=== PATIENT | female | born 1995 | race Caucasian/White ===

== ENCOUNTER 2018-07-02 09:28 | Emergency (ER) | payer OTHER ==
[~2018-07-02] VITALS: Ht 165.1 cm; Wt 65.8 kg
[2018-07-02] MEDS ORDERED: [UNRECOGNIZED DRUG - OTHER] (10:18)
[2018-07-02] MEDS ORDERED: bcp (10:25)
[2018-07-02] MEDS ORDERED: RABIES IMMUNE GLOBULIN 150 UNIT/ML 10 ML (HYPERRAB) IM ONE (10:30)
[2018-07-02] MEDS ORDERED: RABIES VACCINE HUMAN DIPL CELL 1 ML/2.5 UNITS SYR IM ONE (10:30)
--- NOTE | 2018-07-02 10:33 | ED Integumentary General ---
General Chief Complaint: Bite-Animal/Human/Insect Stated Complaint: L ARM LAC Source: patient Exam Limitations: no limitations History of Present Illness Date Seen by Provider: Jul 02, 2018 Time Seen by Provider: 10:30 Initial Comments This 23-year-old white female presents after she was bitten in the left forearm by a stray dog in the non-provoked attack shortly prior to presentation urgency department. Patient denies other injury and interaction. Patient states her last tetanus was 2 years ago. The animal causing the injury escaped. Patient denies loss sensation range of motion of the affected extremity. Allergies and Home Medications Allergies Coded Allergies: nickel (Verified Allergy, Unknown, 07/02/18) Uncoded Allergies: medal (Allergy, Unknown, 07/02/18) Patient Home Medication List Home Medication List Reviewed: Yes Review of Systems Review of Systems Constitutional: No chills EENTM: No ear pain Respiratory: No cough Cardiovascular: No chest pain Gastrointestinal: No abdominal pain Genitourinary: no symptoms reported Musculoskeletal: no symptoms reported Skin: see HPI, other (dog bite left forearm.) Psychiatric/Neurological: No Symptoms Reported Endocrine: No Symptoms Reported Past Kvdkivz-Zsjdel-Seaclj Hx Past Med/Social Hx: Reviewed Nursing Past Med/Soc Hx Patient Social History Alcohol Use: Occasionally Uses Recreational Drug Use: No Smoking Status: Never a Smoker Past Medical History Surgeries: Yes (BRAIN) Respiratory: No Cardiac: No Neurological: No Genitourinary: No Gastrointestinal: No Musculoskeletal: No Endocrine: No HEENT: No Integumentary: No Physical Exam Vital Signs Vital Signs - First Documented 07/02/18 09:56 Temp 97.2 Pulse 82 Resp 18 B/P (MAP) 136/92 (107) Pulse Ox 97 O2 Delivery Room Air Capillary Refill : General Appearance: WD/WN, no apparent distress HEENT: normal ENT inspection Neck: normal inspection Cardiovascular: regular rate, rhythm Respiratory: lungs clear Neurologic/Psychiatric: no motor/sensory deficits, alert, normal mood/affect, oriented x 3 Skin: other (there is a 1 cm laceration to the posterior aspect mid left forearm. There was a normal neurovascular tendon exam.) Progress/Results/Core Measures Results/Orders My Orders Orders - NANNETTE ARCINIEGA MD Rabies Vaccine Human Dipl Cell (Rabavert (07/02/18 10:30) Rabies Immune Globulin/Pf Inj (Hyperrab (07/02/18 10:30) Lidocaine 1% Inj 20 Ml (Xylocaine 1% Inj (07/02/18 10:45) Medications Given in ED Current Medications Medications Dose Ordered Sig/Vignesh Route Start Time Stop Time Status Last Admin Dose Admin Lidocaine HCl 20 ml ONCE ONCE INJ 07/02/18 10:45 07/02/18 10:46 DC 07/02/18 11:10 20 ML Rabies Immune Globulin 1,318 unit ONCE ONCE IM 07/02/18 10:30 07/02/18 10:31 DC 07/02/18 11:10 1,318 UNIT Rabies Vaccine Human Diploid Cell 1 ml ONCE ONCE IM 07/02/18 10:30 07/02/18 10:31 DC 07/02/18 11:08 1 ML Vital Signs/I&O 07/02/18 09:56 Temp 97.2 Pulse 82 Resp 18 B/P (MAP) 136/92 (107) Pulse Ox 97 O2 Delivery Room Air Progress Progress Note : Time: 11:15 Progress Note I discussed the need for rabies prophylaxis with the patient and she is agreeable. Patient received day 0 treatment with rig 8.7 ml and her first rabies vaccine of 1cc. arrange patient to have the remainder of her rabies prophylaxis as an outpatient here via [facility]. The wound prior to administration of the right was copiously irrigated and anesthesia was obtained with 1 percent plain Xylocaine. The wound was approximated with 2 horizontal mattress sutures of 5-0 nylon. Dressing with topical antibiotic ointment was applied. Departure Impression Primary Impression: Dog bite Qualified Codes: W54.0XXA - Bitten by dog, initial encounter Additional Impression: Rabies exposure Disposition: 01 HOME, SELF-CARE Condition: Improved Departure-Patient Inst. Decision time for Depature: 11:19 Referrals: YANELIS SEE MD Patient Instructions: Animal Bites (DC) Add. Discharge Instructions: Complete her rabies prophylaxis as an outpatient here at [facility]. Augmentin and Vicodin as prescribed. Return if any problems or questions. Sutures out in 10 days. Close follow-up with Dr. See. All discharge instructions reviewed with patient and/or family. Voiced understanding. NANNETTE ARCINIEGA MD Jul 02, 2018 10:33
[2018-07-02] MEDS ORDERED: LIDOCAINE 1% INJ 20 ML 20 ML VIAL INJ ONE (10:45)
[2018-07-02 11:28] VITALS: BP 136/92
== END 2018-07-02 11:28 | disposition home or self-care (01) ==
LOC: ER 09:28
DX: S51.852A Open bite of left forearm, initial encounter (principal); Z20.3 Contact with and (suspected) exposure to rabies; Z23 Encounter for immunization; Z88.8 Allergy status to other drugs, medicaments and biological substances; W54.0XXA Bitten by dog, initial encounter
CPT/HCPCS: 90376; 90675